=== PATIENT | male | born 1965 | race Caucasian/White ===

== ENCOUNTER 2016-06-10 17:50 | Emergency (ER) | payer SELFPAY ==
[~2016-06-10] VITALS: Ht 185.4 cm; Wt 97.3 kg
[2016-06-10 17:54] VITALS: BP 141/95; PULSE 90; RESP 16; O2SAT 96
--- NOTE | 2016-06-10 19:00 | DRSVH ---
PROCEDURE: X-RAY FINGERS, TWO VIEWS INDICATIONS: Pain/swelling TECHNIQUE: AP hand, 2 views of the left first finger(s) acquired. COMPARISON: None. FINDINGS: Bones: The distal talus of the first digit is dislocated posteriorly. Linear lucency traverses the pr oximal aspect of the distal phalanx of the first digit, with articular surface extension to the inter phalangeal joint of the first digit.. Soft tissues: No suspicious soft tissue calcifications. IMPRESSION: 1. Fracture dislocation of the first digit. Dictated by: Mando Daniel M.D. on 06/10/2016 at 18:57 Approved by: Mando Daniel M.D. on 06/10/2016 at 18:58
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
--- NOTE | 2016-06-10 20:42 | DRSVH ---
PROCEDURE: X-RAY FINGERS, TWO VIEWS INDICATIONS: post reduction films TECHNIQUE: AP hand, 2 views of the left first finger(s) acquired. COMPARISON: None. FINDINGS: Bones: Status post relocation of the distal phalanx of the first digit. Previously described fracture of the distal phalanx of the first digit is no longer identified, possibly secondary to differences in obliquity, or possibly representing a mock line on the prior examination. No suspicious bony lesio ns. Soft tissues: No suspicious soft tissue calcifications. IMPRESSION: 1. Relocation of first digit as described above. Dictated by: Mando Daniel M.D. on 06/10/2016 at 20:39 Approved by: Mando Daniel M.D. on 06/10/2016 at 20:40
[2016-06-10] MEDS ORDERED: TdaP Vaccine 0.5 mL Inj IM ONE (22:35)
[2016-06-10] MEDS ORDERED: _HYDROcodone/APAP 5-325 mg Tablet PO PRN (22:45)
[2016-06-10] MEDS ORDERED: CEPH-512 PO (23:04)
[2016-06-10 23:16] VITALS: BP 155/86; PULSE 68; RESP 18; O2SAT 97
== END 2016-06-10 23:17 | disposition home or self-care (01) ==
LOC: SED 17:50
DX: S62.522B Displaced fracture of distal phalanx of left thumb, initial encounter for open fracture (principal); S63.145A Dislocation of distal interphalangeal joint of left thumb, initial encounter; V86.59XA Driver of other special all-terrain or other off-road motor vehicle injured in nontraffic accident, initial encounter; Y92.410 Unspecified street and highway as the place of occurrence of the external cause; Y93.55 Activity, bike riding; Y99.8 Other external cause status; J45.909 Unspecified asthma, uncomplicated; Z23 Encounter for immunization